=== PATIENT | female | born 1985 | race Two or more races ===

== ENCOUNTER 2020-03-13 10:27 | Outpatient (CLI) | payer OTHER | END 2020-03-14 11:20 | disposition home or self-care (01) | LOC: OFIC 805 10:27 | PROVIDERS: ATTEND Otolaryngology | DX: H60.8X3 Other otitis externa, bilateral (principal); H68.103 Unspecified obstruction of Eustachian tube, bilateral; H61.23 Impacted cerumen, bilateral ==

== ENCOUNTER → 2020-03-18 | Outpatient (CLI) | payer OTHER | END | disposition home or self-care (01) | LOC: OFIC 805 09:00 | PROVIDERS: ATTEND Otolaryngology | DX: H60.8X3 Other otitis externa, bilateral (principal); H93.8X3 Other specified disorders of ear, bilateral ==

== ENCOUNTER 2020-05-05 02:26 | Outpatient (CLI) | payer OTHER | END 2020-05-05 04:08 | disposition home or self-care (01) | LOC: OBS/DEL 02:26 | PROVIDERS: ATTEND Obstetrics & Gynecology Maternal & Fetal Medicine | DX: O36.8130 Decreased fetal movements, third trimester, not applicable or unspecified (principal) ==

== ENCOUNTER 2020-05-06 11:19 | Outpatient (CLI) | payer OTHER | END 2020-05-06 12:12 | disposition home or self-care (01) | LOC: NST 11:19 | PROVIDERS: ATTEND Obstetrics & Gynecology Maternal & Fetal Medicine | DX: Z34.83 Encounter for supervision of other normal pregnancy, third trimester (principal) ==